=== PATIENT | female | born 1955 | race Asian ===

== ENCOUNTER 2017-05-20 08:30 | Day surgery (SDC) | payer OTHER ==
[~2017-05-20] VITALS: Ht 149.9 cm; Wt 56.7 kg
[~2017-05-20 08:30] MED LIST: ASPI81EC; ATEN50; CALCAVITDA; CYCL10 PO; HYDACE5 PO; HYDACE5325 PO; LEVSOD100 PO; LEVSOD50 PO; LISI10; LISI20; LOSA25; LOSARTAN-HCTZ1 EAC1 PO; LOSHYD100 PO; LOVA40; Lovastatin10 MG PO; NAPR500 PO; Norco 5-325 Ta1 EACH PO; ONDA4 PO; OTC ALLERGY MED; POTA10T PO; POTCHL10ER PO; Percocet 5-3251 EACH PO; Prednisone20 MG PO
== END 2017-05-20 22:51 | disposition home or self-care (01) ==
LOC: ORSCMMR 08:30
PROVIDERS: Internal Medicine Gastroenterology
PROC: 0DBN8ZX Excision of Sigmoid Colon, Via Natural or Artificial Opening Endoscopic, Diagnostic (ICD-10-PCS; principal; 2017-05-20 09:30)
DX: Z12.11 Encounter for screening for malignant neoplasm of colon (principal); D12.5 Benign neoplasm of sigmoid colon; K64.8 Other hemorrhoids; K57.30 Diverticulosis of large intestine without perforation or abscess without bleeding; I10 Essential (primary) hypertension; E78.00 Pure hypercholesterolemia, unspecified; E03.9 Hypothyroidism, unspecified; Z79.899 Other long term (current) drug therapy
CPT/HCPCS: 88305; J7120

== ENCOUNTER → 2019-11-01 | Outpatient (CLI) | payer OTHER | LOC: PLD 08:00 → LAB SHORT 08:00 | DX: N72 Inflammatory disease of cervix uteri (principal); N87.9 Dysplasia of cervix uteri, unspecified | CPT/HCPCS: 88305 ==

== ENCOUNTER 2020-04-23 08:28 | Day surgery (SDC) | payer MEDICARE, OTHER ==
[~2020-04-23] VITALS: Ht 149.9 cm; Wt 58.9 kg
[~2020-04-23 08:28] MED LIST changes: +ALEN70 PO; +KLOR-CON 1010 ME1 PO; +LOSARTAN POTAS100 M1 PO; +LOVA40 PO
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
== END 2020-04-23 12:34 | disposition home or self-care (01) ==
LOC: ORSCSDS 08:28
PROVIDERS: Podiatrist Foot & Ankle Surgery
PROC: 0LQN0ZZ Repair Right Lower Leg Tendon, Open Approach (ICD-10-PCS; principal; 2020-04-23 10:00)
PROC: 0QBL0ZZ Excision of Right Tarsal, Open Approach (ICD-10-PCS; principal; 2020-04-23 10:00)
DX: M76.61 Achilles tendinitis, right leg (principal); M92.61 Juvenile osteochondrosis of tarsus, right ankle; E11.9 Type 2 diabetes mellitus without complications; I10 Essential (primary) hypertension; E78.5 Hyperlipidemia, unspecified; J45.909 Unspecified asthma, uncomplicated; F41.9 Anxiety disorder, unspecified; Z79.899 Other long term (current) drug therapy
CPT/HCPCS: 82947; A9270; C1713; J0171; J0690; J2250; J2704; J3010; J7120

== ENCOUNTER → 2021-05-08 | Outpatient (CLI) | payer OTHER ==
[2021-05-12 23:09] LABS: HPV 16 Negative (Negative); HPV 18 Negative (Negative); HPV OTHER HR TYPES Positive (Negative)
== END | disposition home or self-care (01) ==
LOC: LAB 11:11
PROVIDERS: Obstetrics & Gynecology
DX: Z01.419 Encounter for gynecological examination (general) (routine) without abnormal findings (principal)
CPT/HCPCS: 87624; G0123

== ENCOUNTER 2023-08-08 17:21 | Emergency (ER) | payer MEDICARE, OTHER ==
[~2023-08-08] VITALS: Ht 149.9 cm; Wt 57.1 kg
[~2023-08-08 17:21] MED LIST changes: +EUTHYROX50 MCG PO; -LEVSOD100 PO
[2023-08-08] MEDS ORDERED: POTCHL20ER PO (17:34)
[2023-08-08] MEDS ORDERED: AMLODIPINE BESYL5 MG PO (17:34)
[2023-08-08] MEDS ORDERED: HYDROmorphone HCl/Pf 1MG SYR IV PRN (19:05)
[2023-08-08] MEDS ORDERED: HYDROmorphone HCl/Pf 1MG SYR IV ONE (19:05)
[2023-08-08] MEDS ORDERED: Ketorolac Tromethamine 30mg Vial IV ONE (19:45)
[2023-08-08] MEDS ORDERED: Propofol 10mg/ml 20 ml Vial (Procedural) IV SCH (21:00)
[2023-08-08] MEDS ORDERED: NS 1,000 ML IV SCH (21:00)
[2023-08-08] MEDS ORDERED: RX Prepack 6 Tabs Oxycodone 5mg UD ONE (22:20)
[2023-08-08] MEDS ORDERED: OXAYDO5 M1 PO (22:22)
[2023-08-08 23:00] VITALS: BP 147/77
== END 2023-08-08 23:08 | disposition home or self-care (01) ==
LOC: ER 17:21
DX: S82.64XA Nondisplaced fracture of lateral malleolus of right fibula, initial encounter for closed fracture (principal); S82.301A Unspecified fracture of lower end of right tibia, initial encounter for closed fracture; S82.831A Other fracture of upper and lower end of right fibula, initial encounter for closed fracture; W18.30XA Fall on same level, unspecified, initial encounter; Z88.8 Allergy status to other drugs, medicaments and biological substances; Z79.899 Other long term (current) drug therapy; I10 Essential (primary) hypertension; E03.9 Hypothyroidism, unspecified
CPT/HCPCS: 27752; 73600; 73700; 76000; 76377; 96374-59; 96375-59; 96376-59; 99152; 99153; 99284-25; A9270; J1170; J1885; J2704; J7030

== ENCOUNTER 2023-08-17 10:18 | Day surgery (SDC) | payer MEDICARE, OTHER ==
[~2023-08-17] VITALS: Ht 149.9 cm; Wt 55.2 kg
[~2023-08-17 10:18] MED LIST changes: +AMLODIPINE BESYL5 MG PO; +Lactated Ringer's 1,000 ML IV ONE; +OXAYDO5 M1 PO; +POTCHL20ER PO; +Ropivacaine 0.5% HCl/Pf 5 MG/ML 20ML VIAL ONE
[2023-08-17] MEDS ORDERED: propofoL 20 ML IV ONE (11:46)
[2023-08-17] MEDS ORDERED: NS 50 ML IV ONE (12:09)
[2023-08-17] MEDS ORDERED: Lactated Ringer's 1,000 ML IV ONE ×2 (12:09→15:22)
[2023-08-17] MEDS ORDERED: CeFAZolin Sodium 2,000 MG VIAL ONE (12:09)
[2023-08-17] MEDS ORDERED: Dexamethasone Sod Phos 10 MG/ML 1ML VIAL ONE ×2 (12:52→14:55)
[2023-08-17] MEDS ORDERED: Ropivacaine 0.5% HCl/Pf 5 MG/ML 20ML VIAL ONE ×2 (12:52→13:08)
[2023-08-17] MEDS ORDERED: Midazolam HCl 1MG / ML 2ML Vial ONE (13:01)
--- NOTE | 2023-08-17 13:40 | NUR ---
08/17/[address] PERFORMED A NERVE BLOCK. START TIME AT 1319. PT WAS ON RA, OXYGEN SAT WAS ON, VSS WNL. PT COMPLIANT WITH CARE. IV VERSED GIVEN TO HELP WITH ANXIETY. PT ABLE TO COMMUNICATE NEEDS DURING NERVE BLOCK. STOP TIME AT 1326. PT TOLERATED BLOCK WELL. WAITING TO GIVE REPORT TO CIRCULATING RN. CHRISTIANA.
[2023-08-17] MEDS ORDERED: FentaNYL Citrate 50 MCG/ML 2 ML Injection ONE (14:48)
[2023-08-17] MEDS ORDERED: Ondansetron HCl 2 MG / ML 2ML Vial ONE (14:55)
[2023-08-17] MEDS ORDERED: Ketorolac Tromethamine 30mg Vial ONE (14:55)
[2023-08-17 16:48] VITALS: BP 138/62
== END 2023-08-17 17:30 | disposition home or self-care (01) ==
LOC: ORSCSDS 10:18
PROVIDERS: Podiatrist Foot & Ankle Surgery
PROC: 0QSG04Z Reposition Right Tibia with Internal Fixation Device, Open Approach (ICD-10-PCS; principal; 2023-08-17 13:15)
PROC: 0QSJ04Z Reposition Right Fibula with Internal Fixation Device, Open Approach (ICD-10-PCS; principal; 2023-08-17 13:15)
DX: S82.871A Displaced pilon fracture of right tibia, initial encounter for closed fracture (principal); I10 Essential (primary) hypertension; J45.909 Unspecified asthma, uncomplicated; E03.9 Hypothyroidism, unspecified; Z79.899 Other long term (current) drug therapy
CPT/HCPCS: 82947; 93005; 93010; C1713; J0690; J1100; J1885; J2250; J2405; J2704; J2795; J3010; J7120